=== PATIENT | female | born 2000 | race Two or more races ===

== ENCOUNTER 2023-04-18 03:31 | Emergency (ER) | payer BC ==
[2023-04-18] MEDS ORDERED: Ondansetron PF 4 MG/2 ML Vial ONE (04:00)
[2023-04-18] MEDS ORDERED: Ketorolac Tromethamine 30 MG (1 mL) VIAL ONE (04:00)
[2023-04-18 04:04] LABS: #Basophils 0.1 10x3/uL (0.0-0.2); #Eosinphils 0.1 10x3/uL (0.0-0.5); #Neutrophils 9.2 10x3/uL (1.5-8.4); %Basophils 0.5 % (0.0-2.0); %Eosinophils 0.8 % (0.0-6.0); %Lymphocytes 33.1 % (18.0-47.0); %Monocytes 6.2 % (0.0-10.0); %Neutrophils 59.1 % (40.0-75.0); Hematocrit 39.3 % (34.9-44.5); Hemoglobin 13.2 g/dL (12.0-15.5); Mean Corpuscular HGB CONC 33.6 g/dL (32.0-36.0); Mean Corpuscular Hemoglobin 28.6 pg (27.0-33.0); Mean Corpuscular Volume 85.1 fl (81.6-98.3); Mean Platelet Volume 9.7 fl (7.4-10.4); Platelet Count 442 10x3/uL (150-450); RBC Distribution Width 14.7 % (11.5-14.5); Red Blood Cell (RBC) Count 4.62 10x6/uL (3.90-5.03); White Blood Cell (WBC) Count 15.6 10x3/uL (3.5-10.5)
[2023-04-18 04:15] LABS: BHCG - Serum Negative (NEGATIVE)
[2023-04-18 04:16] LABS: Pregs Control Background? CLEAR/WHITE (CLR/WHITE); Pregs Control Bar Appear? YES (CONTROL BAR)
[2023-04-18 04:18] LABS: ALT (SGPT) 29 U/L (8-55); AST (SGOT) 18 U/L (5-34); Albumin 4.6 g/dL (3.5-5.0); Alkaline Phosphatase 98 U/L (40-110); Anion Gap 16 mmol/L (10-20); BUN (Urea Nitrogen) 13 mg/dL (7.0-18.7); Bilirubin, Total 0.7 mg/dL (0.2-1.2); Calc. Creatinine Clearance 0 mL/min (70-130); Calcium 9.1 mg/dL (7.8-10.44); Carbon Dioxide 20 mmol/L (22-29); Chloride 105 mmol/L (98-107); Estimated GFR 93; Globulin 2.9 g/dL (2.4-3.5); Glucose 107 mg/dL (70-105); Potassium 3.4 mmol/L (3.5-5.1); Protein, Total 7.5 g/dL (6.0-8.3); Sodium 138 mmol/L (136-145)
[2023-04-18] MEDS ORDERED: HYDROcodone/Acetaminophen 5/325 mg Tablet ONE (05:33)
[2023-04-18 05:36] LABS: Bilirubin Neg (Negative); Blood, Urine 250 (Negative); Glucose, Urine (Dipstick) Normal (Negative); Ketone, Urine 150 mg/dL (Negative); Leukocyte 500 (Negative); Nitrite Negative (Negative); Protein, Urine (Dipstick) 30 mg/dl (Neg-Trace); Specific Gravity, Urine 1.025 (1.005-1.030)
[2023-04-18 05:45] LABS: Clarity Cloudy (Clear)
[2023-04-18 05:46] LABS: Bacteria/HPF 1+ HPF (None Seen); CAUTI Indications for Culture Pelvic or flank pain; RBC/HPF Greater than 50 HPF (0-3); WBC/HPF 21-50 HPF (0-3)
[2023-04-18 05:48] LABS: Urine Culture Reflex Yes Yes
== END 2023-04-18 05:40 | disposition home or self-care (01) ==
LOC: CSHERS 03:31
DX: N13.2 Hydronephrosis with renal and ureteral calculous obstruction (principal)
CPT/HCPCS: 74176; 80053; 81001; 84703; 85025; 87086; 96361; 96374; 96375; J1885; J2405